=== PATIENT | female | born 1985 | race Hispanic/Latino ===

== ENCOUNTER → 2024-01-15 | Outpatient (REF) | payer MEDICARE ==
[~2024-01-15] MED LIST: IOPAMIDOL 370 MG/ML 100 ML INFUS..BTL INJ ONE
== END ==
LOC: CT 07:49
PROVIDERS: ATTEND Nurse Practitioner
DX: I77.1 Stricture of artery (principal)
CPT/HCPCS: 36415; 73206; 84702; Q9967

== ENCOUNTER → 2024-09-09 | Outpatient (REF) | payer MEDICARE | LOC: CARD 15:15 | PROVIDERS: ATTEND Surgery Vascular Surgery | DX: M79.601 Pain in right arm (principal); I82.A11 Acute embolism and thrombosis of right axillary vein | CPT/HCPCS: 93931; 93971 ==